=== PATIENT | female | born 1950 | race Caucasian/White ===

== ENCOUNTER 2017-11-18 11:11 | Emergency (ER) | payer MEDICARE, BC ==
[2017-11-18] MEDS ORDERED: IPRATROPIUM/ALBUTEROL 0.5-2.5 MG/3 ML AMPUL NEB ONE (11:33)
--- NOTE | 2017-11-18 11:35 | ER Document Report ---
ED Medical Screen (RME) - General Chief Complaint: Shortness Of Breath Stated Complaint: DIFFICULTY BREATHING Time Seen by Provider: 11/18/17 11:29 Mode of Arrival: Ambulatory Information source: Patient TRAVEL OUTSIDE OF THE [place] IN LAST 30 DAYS: No - HPI Patient complains to provider of: courtney Notes: 11/18/17 11:34 Patient is here with complaints of cough, shortness of breath, wheezing. States that she was seen at [facility] yesterday was given Zithromax, prednisone and an albuterol inhaler but was not given a breathing treatment. Today she is feeling worse. No fever. No chest pain. She denies any recent long trips, surgeries, leg pain or swelling, history of DVT or PE, hormones, cancer. She does have a history of asthma. She is a non-smoker. Physical exam: No respiratory distress. Nontoxic-appearing. Expiratory wheezing with a few scattered crackles. Plan: EKG and chest x-ray ordered. DuoNeb ordered. An initial examination was made on the patient as part of the triage process, and it was determined a more comprehensive evaluation was necessary. Initial labs were ordered and patient was transferred to another provider in the ED who assumed care and finished evaluation and plan. Physical Exam - Vital signs Vitals: Temp Pulse Resp BP Pulse Ox 97.9 F 113 H 16 154/57 H 97 11/18/17 11:15 11/18/17 11:15 11/18/17 11:15 11/18/17 11:15 11/18/17 11:15 Course - Vital Signs Vital signs: Temp Pulse Resp BP Pulse Ox 97.9 F 113 H 16 154/57 H 97 11/18/17 11:15 11/18/17 11:15 11/18/17 11:15 11/18/17 11:15 11/18/17 11:15
[2017-11-18] MEDS ORDERED: METHYLPREDNISOLONE INJ 500 MG VIAL IV ONE (11:58)
[2017-11-18] MEDS ORDERED: ALBUTEROL SULFATE 0.083% NEB 2.5 MG/3 ML AMPUL NEB ONE (11:59)
--- NOTE | 2017-11-18 12:03 | ER Document Report ---
ED General - General Chief Complaint: Shortness Of Breath Stated Complaint: DIFFICULTY BREATHING Time Seen by Provider: 11/18/17 11:29 Mode of Arrival: Ambulatory TRAVEL OUTSIDE OF THE [place] IN LAST 30 DAYS: No - HPI Notes: 67-year-old female with a known history of asthma, non-smoker, presents with cough dyspnea and wheezing. Ongoing symptoms over the last week, gradual in onset. Was most recently seen at an outside urgent care where she was given a "Z-Cordell" and discharged home. She is using her albuterol inhaler at home but is "not working". She has some chest pain but it is only associated with cough. She was seen initially in our fast track and then transferred here after x-ray and EKG were ordered. No other modifying factors, no other associated symptoms , no other provocative or palliative factors. Past Medical History - General Information source: Patient - Social History Smoking Status: Never Smoker Family History: None - Medical History Notes: Includes asthma Review of Systems - Review of Systems Notes: Review of systems as in the history of present illness, otherwise negative. Physical Exam - Vital signs Vitals: Temp Pulse Resp BP Pulse Ox 97.9 F 113 H 16 154/57 H 97 11/18/17 11:15 11/18/17 11:15 11/18/17 11:15 11/18/17 11:15 11/18/17 11:15 - Notes Notes: General: Well developed . HEENT: Normocephalic, atraumatic. Pupils equal round reactive to light. No JVD. Chest: No trauma. Respiratory: Fair air exchange, normal excursion. Coarse, diminished breath sounds with expiratory wheezing Cardiac: Regular rhythm. No murmurs or gallops. Abdomen: Soft, benign. Nondistended. Nontender. Back: No asymmetry or gross abnormality. Motor: Grossly normal power and tone. Neurologic: Alert, nonfocal. Cranial nerves II-12 are intact. Sensation intact. Vascular: Well perfused. Normal peripheral pulses. Skin: No petechiae or purpura. Course - Re-evaluation Re-evalutation: 11/18/17 12:02 Male who presents with bronchospasm likely asthma exacerbation, more likely brought on by viral URI/bronchitis. Pneumonia less likely but would be considered. Plan to proceed with additional bronchodilators, steroids, chest x- ray and reassess. Patient's ECG is reviewed below. There is no previous for comparison. She appears to have just diffuse repolarization changes, I do not believe this represents ischemia. She has no other symptoms or risk factors that suggest this. 11/18/17 15:36 Chest x-ray shows no evidence of pneumonia. Patient feels substantially improved, wheezing has cleared. Discharge home with a 5 day course of prednisone, continue nebs. - Vital Signs Vital signs: Temp Pulse Resp BP Pulse Ox 99.0 F 103 H 18 141/46 H 98 11/18/17 14:03 11/18/17 14:03 11/18/17 14:03 11/18/17 14:03 11/18/17 14:03 - EKG Interpretation by Mo EKG shows normal: Sinus rhythm, Intervals, QRS Complexes - Nonspecific ST-T changes and likely repolarization changes Discharge - Discharge Clinical Impression: Asthma Qualifiers: Asthma severity: moderate Asthma persistence: unspecified Asthma complication type: with acute exacerbation Qualified Code(s): J45.901 - Unspecified asthma with (acute) exacerbation Condition: Good Disposition: HOME, SELF-CARE Instructions: Asthma (REPLACED BY [facility]) Prescriptions: Prednisone [Deltasone 20 mg Tablet] 3 tab PO DAILY 5 Days #15 tablet
[2017-11-18] MEDS ORDERED: METHYLPREDNISOLONE INJ 125 MG/2 ML SDV IV ONE (13:00)
[2017-11-18 14:04] VITALS: BP 141/46
--- NOTE | 2017-11-18 14:09 | EKG REPORT ---
SEVERITY:- ABNORMAL ECG - SINUS TACHYCARDIA PROBABLE LEFT ATRIAL ABNORMALITY NONSPECIFIC REPOL ABNORMALITY, DIFFUSE LEADS : Confirmed by: Nic Fulton MD 18-Nov-2017 14:08:15
--- NOTE | 2017-11-19 15:16 | RADIOLOGY REPORT (SQ) ---
EXAM DESCRIPTION: CHEST 2 VIEWS COMPLETED DATE/TIME: 11/18/2017 12:05 pm REASON FOR STUDY: cough, wheeze, sob COMPARISON: None. EXAM PARAMETERS: NUMBER OF VIEWS: Two view. TECHNIQUE: Frontal and lateral radiographic views of the chest acquired. RADIATION DOSE: N/A LIMITATIONS: None. FINDINGS: LUNGS AND PLEURA: Subsegmental atelectasis in the right base. No pulmonary infiltrate or pleural effusion. No mass. MEDIASTINUM AND HILAR STRUCTURES: No masses. No contour abnormalities. HEART AND VASCULAR STRUCTURES: Heart normal in size and contour. No evidence for failure. BONES: No acute findings. HARDWARE: None. OTHER: No other significant finding. IMPRESSION: No acute cardiopulmonary disease. TECHNICAL DOCUMENTATION: JOB ID: [id number] [employer]- All Rights Reserved Reading location - IP/workstation name: [email or web address]
== END 2017-11-18 14:05 | disposition home or self-care (01) ==
LOC: ER 11:11
DX: J45.901 Unspecified asthma with (acute) exacerbation (principal); R05 Cough; R07.89 Other chest pain
CPT/HCPCS: 93005; 94640 ×2; 99285; 96374; 71046; 93010; J2930; J2920; A9270 ×2; J7620